=== PATIENT | female | born 1985 | race Caucasian/White ===

== ENCOUNTER → 2016-10-19 | Outpatient (CLI) | payer OTHER ==
[~2016-10-19] VITALS: Ht 172.7 cm; Wt 68.0 kg
[~2016-10-19] MED LIST: NS 1,000 ML IV SCH; PROPOFOL 200 MG/20 ML VIAL As Ordered ONE; VITA400C29 PO
--- NOTE | 2016-10-19 07:41 | ROOR ---
Patient Name: Idania Geiger Procedure Date: 10/19/2016 7:28 AM Date of : 1985 Age: 31 Room: [facility] Gender: Female Note Status: Finalized Procedure: Upper GI endoscopy Indications: Persistent vomiting Providers: Sylvain MOJICA MD Referring MD: RAMBO RICKS MD Requesting Provider: Medicines: Monitored Anesthesia Care Complications: No immediate complications. Procedure: Pre-Anesthesia Assessment: - The heart rate, respiratory rate, oxygen saturations, blood pressure, adequacy of pulmonary ventilation, and response to care were monitored throughout the procedure. The Endoscope was introduced through the mouth, and advanced to the second part of duodenum. The upper GI endoscopy was accomplished without difficulty. The patient tolerated the procedure well. Findings: The esophagus was normal. The stomach was normal. The examined duodenum was normal. Impression: - Normal esophagus. - Normal stomach. - Normal examined duodenum. - No specimens collected. Recommendation: - Observe patient's clinical course. - Follow an antireflux regimen. Sylvain Mojica MD Sylvain MOJICA MD 10/19/2016 7:40:38 AM This report has been signed electronically. Number of Addenda: 0 Note Initiated On: 10/19/2016 7:28 AM Estimated Blood Loss: Estimated blood loss: none.
[2016-10-19 07:56] VITALS: BP 113/65
== END | disposition home or self-care (01) ==
LOC: M OPP 06:38
PROVIDERS: ATTEND Internal Medicine Gastroenterology
DX: R11.0 Nausea (principal); R23.3 Spontaneous ecchymoses; Z80.0 Family history of malignant neoplasm of digestive organs; Z87.891 Personal history of nicotine dependence; Z91.048 Other nonmedicinal substance allergy status

== ENCOUNTER → 2017-05-23 | Outpatient (REF) | payer OTHER ==
[~2017-05-23] MED LIST changes: -NS 1,000 ML IV SCH; -PROPOFOL 200 MG/20 ML VIAL As Ordered ONE; +VITA-110 PO; -VITA400C29 PO
== END ==
LOC: M SFHCLERA 11:45
PROVIDERS: ATTEND Nurse Practitioner Family
DX: R30.0 Dysuria (principal)